=== PATIENT | female | born 2005 | race Caucasian/White ===

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

== ENCOUNTER 2023-11-14 14:47 | Outpatient (CLI) | payer OTHER, SELFPAY ==
[2023-11-14 15:08] LABS: Basophils Absolute Auto 0.04 K/mm3 (0.00-0.10); Basophils Percent Auto 0.6 % (0.0-1.0); Eosinophils Absolute Auto 0.12 K/mm3 (0.02-0.50); Eosinophils Percent Auto 1.7 % (1.0-6.0); Hematocrit 35.3 % (35.0-49.0); Hemoglobin 12.2 g/dL (12.0-15.0); Immature Granulocyte Absolute 0.02 K/mm3 (0.00-0.00); Immature Granulocyte Percent A 0.3 % (0.0-0.0); Lymphocytes Absolute Auto 1.89 K/mm3 (1.10-4.50); Lymphocytes Percent Auto 27.2 % (18.0-42.0); Mean Corpuscular HGB Conc 34.6 g/dL (32-36); Mean Corpuscular Hemoglobin 32.2 pg (27.0-31.0); Mean Corpuscular Volume 93.1 fL (78.0-102.0); Mean Platelet Volume 9.7 fl (9.2-11.8); Monocytes Absolute Auto 0.52 K/mm3 (0.10-0.90); Monocytes Percent Auto 7.5 % (2.0-11.0); Neutrophils Absolute Auto 4.36 K/mm3 (1.70-7.20); Neutrophils Percent Auto 62.7 % (50.0-70.0); Platelet Count Result 245 K/mm3 (150-420); Red Blood Count 3.79 M/mm3 (4.20-5.40); Red Cell Distribution Width 11.6 % (11.6-14.4)
[2023-11-14 16:14] LABS: Alanine Aminotransferase 16 U/L (14-59); Alkaline Phosphatase 57 U/L (46-116); Anion Gap 10 mmol/L (4-12); Aspartate Amino Transferase 19 U/L (15-37); Bilirubin,Total 0.2 mg/dL (0.00-1.00); Blood Urea Nitrogen 11 mg/dL (7-18); Carbon Dioxide 27 mmol/L (21-32); Chloride 99 mmol/L (98-108); Estimated Glomerular Filt Rate > 60; Ferritin 45 ng/mL (8-252); Folic Acid 10.3 ng/mL (8.6->20); Free T4 Free Thyroxine 0.81 ng/dL (0.76-1.46); Glucose 68 mg/dL (70-99); Iron 61 ug/dL (50-170); Osmolality Calculated 279 mOsm/kg (285-295); Percent Iron Saturation 20 % (12-57); Sodium 136 mmol/L (136-145); Vitamin B12 297 pg/mL (193-986)
== END 2023-11-14 14:48 | disposition home or self-care (01) ==
LOC: CHSLAB 14:50
PROVIDERS: PCP Internal Medicine; Visit Provider Internal Medicine
DX: R53.83 Other fatigue (principal); D64.9 Anemia, unspecified
CPT/HCPCS: 36415; 80053; 82607; 82728; 82746; 83540; 83550; 84439; 84443; 84481; 85025

== ENCOUNTER 2024-04-03 12:23 | Outpatient (CLI) | payer OTHER, SELFPAY ==
[2024-04-03 12:37] LABS: Basophils Absolute Auto 0.04 K/mm3 (0.00-0.10); Basophils Percent Auto 0.7 % (0.0-1.0); Eosinophils Absolute Auto 0.13 K/mm3 (0.02-0.50); Eosinophils Percent Auto 2.3 % (1.0-6.0); Hematocrit 41.2 % (35.0-49.0); Hemoglobin 14.1 g/dL (12.0-15.0); Immature Granulocyte Absolute 0.01 K/mm3 (0.00-0.00); Immature Granulocyte Percent A 0.2 % (0.0-0.0); Lymphocytes Absolute Auto 1.86 K/mm3 (1.10-4.50); Lymphocytes Percent Auto 32.7 % (18.0-42.0); Mean Corpuscular HGB Conc 34.2 g/dL (32-36); Mean Corpuscular Volume 93.4 fL (78.0-102.0); Mean Platelet Volume 9.6 fl (9.2-11.8); Monocytes Absolute Auto 0.49 K/mm3 (0.10-0.90); Monocytes Percent Auto 8.6 % (2.0-11.0); Neutrophils Absolute Auto 3.16 K/mm3 (1.70-7.20); Neutrophils Percent Auto 55.5 % (50.0-70.0); Platelet Count Result 261 K/mm3 (150-420); Red Blood Count 4.41 M/mm3 (4.20-5.40); Red Cell Distribution Width 11.9 % (11.6-14.4); White Blood Count 5.7 K/mm3 (4.8-10.8)
[2024-04-03 13:28] LABS: Alanine Aminotransferase 23 U/L (14-59); Albumin Level 4.3 g/dL (3.4-5.0); Alkaline Phosphatase 76 U/L (46-116); Aspartate Amino Transferase 19 U/L (15-37); Bilirubin Direct 0.1 mg/dL (0-0.2); Bilirubin,Total 0.5 mg/dL (0.00-1.00); Cholesterol 223 mg/dL (0-200); HDL Direct 55 mg/dL (40-60); LDL Cholesterol Calculated 142 mg/dL (<130); Total Protein 7.4 g/dL (6.4-8.2); Triglycerides 129 mg/dL (0-150)
== END 2024-04-03 12:24 | disposition home or self-care (01) ==
LOC: CHSLAB 12:26
PROVIDERS: PCP Internal Medicine
DX: L70.0 Acne vulgaris (principal)
CPT/HCPCS: 36415; 80061; 80076; 85025

== ENCOUNTER 2024-08-21 05:43 | Emergency (ER) | payer OTHER, SELFPAY ==
--- NOTE | ~2024-08-21 | CT_ITS ---
Non-contrast CT scan of the Abdomen and Pelvis and lumbar spine Clinical indication: Right flank pain Technique: 2.5 mm axial scans were obtained through the abdomen and pelvis without intravenous or or al contrast. Dedicated noncontrast imaging of the lumbar spine was also performed. Dose reduction chace hnique was used on this scan by utilizing automated exposure control and iterative reconstruction chace hnique. The dose-length product (DLP) was 617.17 mGy-cm. Abdominopelvic Findings: Images through the lung bases reveal no abnormalities. There is a 2 mm right UVJ stone, with minimal fullness of the right renal collecting system. No left renal or left ureteral stone. No left hydronephrosis. The liver, spleen, pancreas, gallbladder, and adrenals appear normal. There is no aortic aneurysm. There is no evidence of bowel obstruction. Normal appendix. Images through the pelvis were performed. There is no evidence of ascites or lymphadenopathy. Urinary bladder unremarkable. IUD in place. No pelvic mass seen. Lumbar spine findings: There is no fracture or subluxation of the lumbar spine. Vertebral bodies main tain normal height and alignment. Intervertebral disc spaces are preserved. No significant disc bulge or herniation seen at any lumbar level. No spinal canal stenosis or neural foraminal narrowing evident. Impression: 2 mm right UVJ stone with minimal fullness of the right renal collecting system. No other significant findings in the abdomen, pelvis, or lumbar spine. Reviewed, dictated and finalized at [facility]. Impression: 2 mm right UVJ stone with minimal fullness of the right renal collecting system . No other significant findings in the abdomen, pelvis, or lumbar spine.
[2024-08-21 05:46] VITALS: BP 116/68; PULSE 87; RESP 18; TEMP 36.2; O2SAT 100
--- OUTSIDE RECORDS SUMMARY | 2024-08-21 05:46 | XMS_ITS | Continuity of Care Document ---
Author Organization [facility] Address [address] [place] [address] Phone Care Team Providers Care Rail Setter Name Role Phone Daily OD, Tano Unavailable Unavailable Procedures Procedure Date Eye Exam, New Patient Refraction Advance Directives Directive Yes / No Effective Date File Name No Information Encounters Encounter Description Practice Location Reason(s) For Visit Diagnoses Date Provider Providers Copied on Encounter [facility], [address] [place], [place], [id number], [place] tel:[phone] [facility] No Information 0-200 8 Daily OD Tano. [address] , [address], [place], [address], [place]. tel:[phone] Family History Family Member Type Diagnosis Age At Onset No Information Payers Payer name Insurance type Covered green party ID Authoriza tion(s) No Information Social History Type Description Quantity Date Captured Comments Sex Female Smoking Status No Information Chief Complaint And Reason For Visit No Information Reason For Referral Reason For Referral No Information History Of Present Illness Encounter Date Complaint History Of Prese nt Illness No Information Functional Status Date Functional Assessmen t No Information Instructions Date Instruction Additional Infor mation No Information Assessments Type Assessment Date No Information Patient Care Teams Name Effective Dates (start - stop) Status Members No Information
--- OUTSIDE RECORDS SUMMARY | 2024-08-21 05:46 | XMS_ITS | Data Portability ---
[facility] Address [address] [place] [address] Care Team Providers Care Bonding Molder Name Role Phone NORBERT DE PAZ Primary Care Provider Assessment Encounter Date Assessment Date Assessment LastModified by Organization Details LastModified Time 11/10/2023 11/10/2023 blood work will be ordered follow-up annually continue to see fruit or nut grower and her leather skinner as they dictate [email or web address] Not available 11/10/2023 21:30:46 02/09/2024 02/09/2024 recheck her blood work she will see me back in 4 months [email or web address] Not available 02/10/2024 15:51:18 Plan of Treatment Reminders Order Date Submit Date Provider Last Modified By Organization Details Last Modified Time Details Appointments None recorded. Lab vitamin B12, serum 2023 [facility] (Lab), [address] [place] [address], [address], 5 14:24:22 CBC w/ auto diff 2023 024 [facility] (Lab), [address] [place], [address], 4 06:03:27 T3, free, serum or plasma 2023 024 [facility] (Lab), [address] [place] [address], [address], 5 14:24:22 TSH + free T4, serum 2023 024 [facility] (Lab), [address] [place], [address], 5 14:24:22 vitamin B12 + folate, serum or blood 2023 024 [facility] (Lab), [address] [place], [address], 4 11:42:44 iron + TIBC + ferritin, serum 2023 024 [facility] (Lab), [address] [place], [address], 4 12:11:00 CMP, serum or plasma 2023 024 [facility] (Lab), [address] [place], [address], 4 11:42:44 CBC w/ auto diff 2023 024 [facility] (Lab), [address] [place], [address], 4 16:41:39 TSH + free T4, serum 2023 024 [facility] (Lab), [address] [place], [address], 4 11:42:44 T3, free, serum or plasma 2023 024 [facility] (Lab), [address] [place], [address], 4 11:42:44 Referral None recorded. Procedures None recorded. Surgeries None recorded. Imaging None recorded. Medication Orders cyanocobal briceno (vit B-12) 1,000 mcg/mL injection solution 2023 024 [id number], [address] [place], [address], 4 17:42:57 Patient TargetsNo targets recorded. Patient Instructions Encounter Date Encounter Id Patient Instructions Last Modified By Organization Details Last Modified Time 02/09/2024 [id number] A healthy lifestyle: care instructions [email or web address] Not available 02/09/2024 13:12:30 Reason for Referral None Reported. Results Created Date Observation Date Name Description Value Unit Range Abnormal Flag Note LastModifiedBy Organization Detail LastModifiedTime Result Notes None recorded. Problems Name Problem SNOMED Code Status Onset Date Resolution Date Notes Provider Name and Address Organization Details Recorded Time Fatigue 67787313 Active 024 LEYDA Friedman, [facility] 4 17:08:14 Anemia 076956106 Active 024 LEYDA Friedman, [facility] 4 17:08:15 Vitamin B deficiency 69521137 Active 024 LEYDA Friedman, [place] [facility] 4 16:11:42 Problem Notes None recorded. Procedures Surgical History Date Name Laterality Status Provider Name and Address Organization Details Recorded Time 7 Tonsillectomy completed Mikey Bell MA [facility] 11/10/2023 16:16:54 Imaging Results None recorded. Procedure Notes None recorded. Medical Equipment None Reported. Allergies Allergen ID Allergen Name Allergen Category Reaction Reaction Severity Criticality Documentation Date Start Date Code Code System Note Provider Name and Address Organization Details Recorded Time 124578 ethinyl estradiol / levonorge strel medicatio n Not available Not available Not available 11/10/2023 51479 8 RxNorm Not Available Not Available Not Available Medications Name Sig Start Date Stop Date Status Note LastModified by Organization Details LastModified Time doxycycline hyclate 100 mg capsule TAKE ONE PILL TWICE DAILY WITH FOOD UNTIL GONE. USE 5-7 DAYS AT A TIME FOR FLARES. 02/08 completed Not Available Not Available Not Available tretinoin 0.025 % topical cream APPLY THIN LAYER TO AFFECTED AREAS BEFORE BEDTIME AFTER WASHING. LAYER WITH MOISTURIZ ER NEEDED. active Not Available Not Available No t Available spironolact one 100 mg tablet TAKE ONE TABLET ONCE DAILY WITH A FULL GLASS OF WATER. active Not Available Not Available No t Available cyanocobala min (vit B-12) 1,000 mcg/mL injection solution INJECT 1ML EVERY WEEK FOR 4 WEEKS THEN INJECT 1ML MONTHLY active Not Available Not Available No t Available spironolact one 50 mg tablet TAKE 1 TABLET BY MOUTH EVERY DAY WITH FULL GLASS OF WATER 02/08 completed Not Available Not Available Not Available syringe with needle 1 mL 25 gauge x 1 active Not Available Not Available N ot Available BD Integra Syringe 3 mL 25 gauge x 1 USE DIRECTED FOR B12 INJECTION active Not Available Not Available No t Available Vitals Date Recorded Body height Body mass index (BMI) Percentile per age and sex Body mass index (BMI) Body weight Heart rate Body temperature Oxygen saturation Oxygen saturation in Arterial blood by Pulse oximetry Systolic blood pressure Diastolic blood pressure Provider Name and Address Organization Details Last Updated DateTime 4 154.94 cm 95 % 32.3 kg/m2 83216.5 8 g 80 /min 98 [degF] 99 % 99 % 108 mm[Hg] 60 mm[Hg] Mikey Bell MA [facility] 4 16:20:10 Date Recorded Body height Body mass index (BMI) Body mass index (BMI) Percentile per age and sex Body weight Heart rate Oxygen saturation Oxygen saturation in Arterial blood by Pulse oximetry Systolic blood pressure Diastolic blood pressure Provider Name and Address Organization Details Last Updated DateTime 4 154.94 cm 31.6 kg/m2 94 % 24768.9 3 g 95 /min 100 % 100 % 100 mm[Hg] 64 mm[Hg] Mahi Rodriguez MA [facility] 4 11:39:34 Social History Question Answer Notes LastModified by Organizat ion Details LastModified Time Tobacco Smoking Status Never Smoker Mikey Bell MA [facility] 11/10/2023 16:16:37 Do You Have An Advance Directive? No Information n ot available 02/09/2024 What Is Your Level Of Alcohol Consumption? None Information not available 11/10/2023 Are You Blind Or Do You Have Difficulty Seeing? No Information n ot available 02/09/2024 In The 14 Days Before Symptom Onset, Have You Had Close Contact With A Laboratory-confirm ed COVID-19 While That Case Was Ill? No Information n ot available 02/09/2024 In The 14 Days Before Symptom Onset, Have You Had Close Contact With A Person Who Is Under Investigation For COVID-19 While That Person Was Ill? No Information not available 02/09/2024 Have You Been To An Area Known To Be High Risk For COVID-19? No Information not available 02/09/2024 Are You Currently Employed? Yes Information not available 02/09/2024 Are You Deaf Or Do You Have Serious Difficulty Hearing? No Information not available 02/09/2024 What Type Of Diet Are You Following? REGULAR Information n ot available 02/09/2024 Are There Any Guns Present In Your Home? No Information not available 02/09/2024 What Was The Date Of Your Most Recent Tobacco Screening? 02/09/2024 Information not available 02/09/2024 What Is Your Relationship Status? Single Information not available 02/09/2024 Do You Use Your Seat Belt Or Car Seat Routinely? Yes Information not available 02/09/2024 Do You Have Smoke And Carbon Monoxide Detectors In Your Home? Yes Information not available 02/09/2024 Do You Use Any Illicit Or Recreational Drugs? No Information not available 11/10/2023 Do You Use Sunscreen Routinely? Yes Information not available 02/09/2024 Has Tobacco Cessation Counseling Been Provided? No Information not available 11/10/2023 Do You Or Have You Ever Used Any Other Forms Of Tobacco Or Nicotine? No Information not available 11/10/2023 Sex: Female Functional Status Question Answer Note LastModified by Organization D etails LastModified Time Are you able to care for yourself? Yes Information n ot available 02/09/2024 Mental Status None recorded. Family History Relationship Description Onset Age of this Age Resolved Age Notes LastModified by Organization Details LastModified Time Mother Hypertensive disorder [email or web address] Not available 16:16:27 Medical History Condition Response Coronary Artery Disease N Atrial Fibrillation N High Blood Pressure N Thyroid Problems N Kidney or Bladder Problems N Depression N COPD N Blood Clots N GI Problems N Skin Problems N Anemia Y Heart Attack ([place]) N Diabetes N Anxiety Disorder N Muscle, Joint, or Bone Problems N Seizures/Epilepsy N Acid Reflux (GERD) N Cancer N Stroke N Allergies N Asthma N High Cholesterol N Hepatitis N Liver Disease N Headaches N Osteoporosis N Heart Failure N Gynecological HistoryNo gynecological history recorded. Obstetrics History GPAL:G 0 P 0 0 0 0 Past Encounters Encounter ID Performer Location Encounter Start Date Encounter Closed Date Diagnosis/Indication Diagnosis SNOMED-CT Code Diagnosis ICD10 Code Diagnosis Note [id number] Norbert De Paz MD REPLACED BY [facility] [place] [address] [place] [address] 11/10/2023 14:20:07 11/10/2023 17:11:01 Fatigue 28304683 R53.83 Anemia 462313334 D64.9 [id number] Elle Dave MA REPLACED BY [facility] [employer] [place] [address] [place] [address] 12/01/2023 16:13:10 12/01/2023 16:54:44 Vitamin B deficiency 12206786 E53.9 [id number] Norbert De Paz MD REPLACED BY [facility] [employer] [place] [address] [place] [address] 02/09/2024 11:15:42 02/09/2024 12:18:53 Obesity 302387406 E66.8 Vitamin B deficiency 479 [address]303 E53.9 Fatigue 77621156 R53.83 Health Concerns Section Related Observation LastModified by Organization Detai ls LastModified Time None Recorded Concern Status LastModified by Organization Details LastModified Time None Recorded Advance Directives Directive N: Payers Encounter Date Sequence Insurance Name Policy Number Policy Thomas Covered Member ID Thomas Member ID Guarantor Name 11/10/2023 1 [facility] (MEDICARE REPLACEMENT/A DVANTAGE - HMO) [id number] Trev Aviles [id number] Coco Aviles 12/01/2023 1 [facility] (MEDICARE REPLACEMENT/A DVANTAGE - HMO) [id number] Trev Aviles [id number] Coco Aviles 02/09/2024 1 [facility] [id number] Trev Aviles [id number] Coco Aviles Notes Date Note Type Note Provider Name and Address Organization Details Recorded Time 11/10/2023 text/html 18-year-old follow-up medical problems she is being treated for acne she has had some fatigue craves ice would like to have some blood work believes since he has had anemia in the past medicines are doxycycline spironolactone tretinoin cream. 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 sees fruit or nut grower yearly Norbert De Paz MD Attn: Accounting[address] [facility], [place], [address], [facility] 11/10/2023 21:31:05 02/09/2024 text/html she felt better when she did the weekly B12 shots still a little tired now Norbert De Paz MD Attn: Accounting[address] [facility], [place], [address], [facility] - REPLACED BY [facility] 02/10/2024 15:51:42 OBGyn Episode No OBEpisode recorded.
--- OUTSIDE RECORDS SUMMARY | 2024-08-21 05:46 | XMS_ITS | Data Portability ---
Author Organization [facility], Main Office Address [address] [place] [address] Assessment Encounter Date Assessment Date Assessment LastModified by Organization Details LastModified Time 03/15/2023 03/15/2023 Dermatology [id number] Not available 22:32:15 Plan of Treatment Reminders Order Date Submit Date Provider Last Modified By Organization Details Last Modified Time Details Appointments None recorded. Lab None recorded. Referral dermatologi st referral 2022 023 [facility], [facility] [place], [address], 4 11:01:03 Procedures None recorded. Surgeries None recorded. Imaging None recorded. Medication Orders None recorded. Patient TargetsNo targets recorded. Patient InstructionsNo instructions recorded. Reason for Referral Glove Examiner Referral for C ystic acne Referring Physician: Norbert De Paz, Internal Medicine, Encounter Date: 03/15/2023 Problems Name Problem SNOMED Code Status Onset Date Resolution Date Notes Provider Name and Address Organization Details Recorded Time Closed fracture of distal end of radius 33919957 Active Not Available [facility] 17:42:18 Fracture of forearm 97566135 Active Not Available [facility] 17:42:18 Cystic acne 27721388 Active 023 LOYAD Friedman, [facility] 16:49:14 Problem Notes None recorded. Procedures Surgical History Date Name Laterality Status Provider Name and Address Organization Details Recorded Time tonsillectomy completed Not Available [facility] 07/14/2022 17:41:42 Imaging Results None recorded. Procedure Notes None recorded. Medical Equipment None Reported. Allergies No known drug allergies Medications Name Sig Start Date Stop Date Status Note LastModified by Organization Details LastModified Time amoxicillin 500 mg capsule 03/28 completed Not Available Not Available Not Available albuterol sulfate 2.5 mg/3 mL (0.083 %) solution for nebulizatio n active Not Available Not Available Not Available azithromyci n 250 mg tablet 08/20 completed Not Available Not Available Not Available hydrocodone 5 mg-acetamin ophen 325 mg tablet TAKE 1 TABLET BY MOUTH EVERY 6 HOURS NEEDED FOR PAIN 08/21 completed Not Available Not Available Not Available amoxicillin 875 mg tablet 12/27 completed Not Available Not Available Not Available amoxicillin 400 mg/5 mL oral suspension 08/20 completed Not Available Not Available Not Available methylpredn isolone 4 mg tablets in a dose pack 12/27 completed Not Available Not Available Not Available ondansetron 4 mg disintegrat ing tablet 12/27 completed Not Available Not Available Not Available amoxicillin 875 mg-potassiu m clavulanate 125 mg tablet 12/27 completed Not Available Not Available Not Available Ventolin HFA 90 mcg/actuati on aerosol inhaler INHALE 2 - 3 PUFFS BY MOUTH EVERY 4 - 6 HOURS active Not Available Not Available No t Available hydrocodone 7.5 mg-acetamin ophen 325 mg/15 mL oral solution 08/20 completed Not Available Not Available Not Available biotin 08/20 completed Not Available Not Available Not Available Larissia 0.1 mg-20 mcg tablet TAKE 1 TABLET BY MOUTH EVERY DAY 03/15 completed Not Available Not Available Not Available EluRyng 0.12 mg-0.015 mg/24 hr vaginal ring INSERT 1 RING VAGINALLY 03/15 completed Not Available Not Available Not Available Vitals Date Recorded Body mass index (BMI) Body height Body weight Systolic blood pressure Diastolic blood pressure Provider Name and Address Organization Details Last Updated DateTime 08/21/2020 28.2 kg/m2 157.48 cm 74692.22 g 100 mm[Hg] 60 mm[Hg] Not Available [facility] 3 17:41:56 Date Recorded Body weight Body mass index (BMI) Body mass index (BMI) Percentile per age and sex Body height Body temperature Heart rate Oxygen saturation Oxygen saturation in Arterial blood by Pulse oximetry Systolic blood pressure Diastolic blood pressure Provider Name and Address Organization Details Last Updated DateTime 3 35371.7 g 32.1 kg/m2 95 % 154.94 cm 96.8 [degF] 116 /min 99 % 99 % 124 mm[Hg] 70 mm[Hg] Rosa Aguirre MA [place] [facility] [place] [employer] [facility] 3 16:10:46 Social History Question Answer Notes LastModified by [employer] Details LastModified Time Tobacco Smoking Status Never Smoker Not Available [facility] 07/14/2022 17:41:37 What Is Your Level Of Alcohol Consumption? None [id number] Information not available 07/14/2022 What Is Your Level Of Caffeine Consumption? Moderate [id number] Information not available 07/14/2022 In The 14 Days Before Symptom Onset, Have You Had Close Contact With A Laboratory-confir med COVID-19 While That Case Was Ill? No [id number] Information not available 07/14/2022 In The 14 Days Before Symptom Onset, Have You Had Close Contact With A Person Who Is Under Investigation For COVID-19 While That Person Was Ill? No [id number] Information not available 07/14/2022 Which Illicit Or Recreational Drugs Have You Used? No [id number] Information not available 07/14/2022 Do You Or Have You Ever Used E-cigarettes Or Vape? Never Used Electronic Cigarettes [id number] Information not available 07/14/2022 What Was The Date Of Your Most Recent Tobacco Screening? 03/15/2023 Information not available 03/15/2023 Do You Use Any Illicit Or Recreational Drugs? No Information not available 03/15/2023 Sex: Unknown Functional Status Question Answer Note LastModified by [employer] Details LastModified Time What is your exercise level? Occasional [id number] Information not available 07/14/2022 Mental Status None recorded. Family History Relationship Description Onset Age of this Age Resolved Age Notes LastModified by Organization Details LastModified Time Mother Hypertensive disorder [id number] Not available 07/14/2022 17:41:43 Unspecified Relation Hyperlipidem ia patern al side Not available 03/15/2023 16:07:38 Medical History Condition Response SKIN PROBLEMS Y OTHER # 1 Y Gynecological History Statement/Question Response Date of Last Pap Smear Current Control Method BCPs Age at Menarche 10 Date of LMP 07/20/2020 Breast Problems no Obstetrics History GPAL:G 0 P 0 0 0 0 Past Encounters Encounter ID Performer Location Encounter Start Date Encounter Closed Date Diagnosis/Indication Diagnosis SNOMED-CT Code Diagnosis ICD10 Code Diagnosis Note [id number] _ATHENA_M IGRATION_ DEFAULT_1 _1 , 08/21/2020 00:00:00 08/21/2020 09:25:01 [id number] Norbert De Paz MD [facility] Internal Med Nae joshi [id number] [facility] , [facility] [place] [address] 03/15/2023 15:25:16 03/15/2023 16:48:57 Cystic acne 14586456 L70.0 Health Concerns Section Related Observation LastModified by Organization Detai ls LastModified Time None Recorded Concern Status LastModified by Organization Details LastModified Time None Recorded Advance Directives Directive None Recorded Payers Encounter Date Sequence Insurance Name Policy Number Policy Thomas Covered Member ID Thomas Member ID Guarantor Name 03/15/2023 1 [facility] [id number] Trev Aviles [id number] Coco Aviles Notes Date Note Type Note Provider Name and Address Organization Details Recorded Time 03/15/2023 text/html 17-year-old acne scarring allergies none surgery tonsils family history hypertension socially single denies smoking drinking drugs does go to school 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
--- OUTSIDE RECORDS SUMMARY | 2024-08-21 05:47 | XMS_ITS | Continuity of Care Document ---
Author Organization [facility] Address [address] [place] [address] Phone Care Team Providers Care Technical Maintenance Specialist Name Role Phone Monique Xavier DPT Unavailable Unavailable Procedures Procedure Date Therapeutic Activities Neuromuscular Re-Ed Therapeutic Exercise Therapeutic Activities Neuromuscular Re-Ed Therapeutic Activities Neuromuscular Re-Ed Therapeutic Activities Neuromuscular Re-Ed Therapeutic Exercise Hot or Cold Pack Therapeutic Activities Neuromuscular Re-Ed Therapeutic Exercise Therapeutic Activities Neuromuscular Re-Ed Therapeutic Exercise PT Evaluation Moderate Complexity Therapeutic Activities Hot or Cold Pack Advance Directives Directive Yes / No Effective Date File Name No Information Encounters Encounter Description Practice Location Reason(s) For Visit Diagnoses Date Provider Providers Copied on Encounter [facility], [place], [place], [address], tel:[phone] [facility] No Information Morenita Amaya. . Referring Provider: Access Direct. [facility], [place], [place], [address], tel:[phone] [facility] No Information Duross Monique. . Referring Provider: Access Direct. [facility], [place], [place], [address], tel:[phone] [facility] No Information Duross Monique. . Referring Provider: Access Direct. [facility], [place], [place], [address], tel:[phone] [facility] No Information Duross Monique. . Referring Provider: Access Direct. [facility], [place], [place], [address], tel:[phone] [facility] No Information Duross Monique. . Referring Provider: Access Direct. [facility], [place], [place], [address], tel:[phone] [facility] No Information Duross Monique. . Referring Provider: Access Direct. [facility], [place], [place], [address], tel:[phone] [facility] No Information Duross Monique. . Referring Provider: Access Direct. Family History Family Member Type Diagnosis Age At Onset No Information Payers Payer name Insurance type Covered alliance party ID Toshia fraustocarla(s) Lien-LOP LI [id number] Social History Type Description Quantity Date Captured Comments Sex Female Smoking Status No Information Chief Complaint And Reason For Visit No Information Reason For Referral Reason For Referral No Information Plan Of Treatment Date Type Action Status Appointment Jared Aviles BOOKED Appointment Jared Aviles BOOKED History Of Present Illness Encounter Date Complaint History Of Prese nt Illness No Information Functional Status Date Functional Assessmen t No Information Instructions Date Instruction Additional Infor mation No Information Assessments Type Assessment Date No Information Patient Care Teams Name Effective Dates (start - stop) Status Members No Information
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
--- OUTSIDE RECORDS SUMMARY | 2024-08-21 06:07 | XMS_ITS | Continuity of Care Document ---
Author Organization [facility] Address [address] [place] [address] Phone Care Team Providers Care Linux Kernel Developer Name Role Phone Daily OD, Tano Unavailable Unavailable Procedures Procedure Date Eye Exam, New Patient Refraction Advance Directives Directive Yes / No Effective Date File Name No Information Encounters Encounter Description Practice Location Reason(s) For Visit Diagnoses Date Provider Providers Copied on Encounter [facility], [address], [place], [place], [address], [place] tel:[phone] [place] No Information 0-200 8 Daily OD Tano. [address] , [address], [place], [address], [place]. tel:[phone] Family History Family Member Type Diagnosis Age At Onset No Information Payers Payer name Insurance type Covered libertarian ID Authoriza tion(s) No Information Social History [...]
--- OUTSIDE RECORDS SUMMARY | 2024-08-21 06:07 | XMS_ITS | Continuity of Care Document ---
Author Organization [facility] Address [address] [place] [address] Phone Care Team Providers Care Curriculum And Instruction Director Name Role Phone Monique Xavier DPT Unavailable [...] Diagnoses Date Provider Providers Copied on Encounter [facility], [place], [place], [address], tel:[phone] [facility] No Information Morenita Amaya. . Referring Provider: Access Direct. [facility], [place], [place], [address], tel:[phone] [facility] No Information Duross Monique. . Referring Provider: Access Direct. [facility], [place], [place], [address], tel:[phone] [facility] No Information Duross Monique. . Referring Provider: Access Direct. [facility], [place], [place], [address], tel:[phone] [facility] No Information Duross Monique. . Referring Provider: Access Direct. [facility], [place], [place], [address], tel:[phone] [facility] No Information Duross Monique. . Referring Provider: Access Direct. [facility], [place], [place], [address], tel:[phone] [facility] No Information Duross Monique. . Referring Provider: Access Direct. [facility], [place], [place], [address], tel:[phone] [facility] No Information Duross Monique. . Referring Provider: Access Direct. Family History Family Member Type Diagnosis Age At Onset No Information Payers Payer name Insurance type Covered green party ID Toshia fraustocarla(s) Lien-LOP LI [id number] [...]
[2024-08-21 06:13] LABS: Add Urine Microscopic? YES; Appearance Urine Sl Cloudy (Clear); Bilirubin Urine Negative (Negative); Blood Urine 3+ (Negative); Color Urine Yellow (Yellow); Glucose Urine UA Negative (Negative); Ketones Urine Negative (Negative); Leukocyte Esterase Ur Trace LEU/UL (Negative); Nitrate Urine Negative (Negative); Protein Urine 1+ (Negative); Specific Grav Ur >= 1.030 (1.010-1.020)
[2024-08-21] MEDS: ONDANSETRON INJ 4 MG/2 ML VIAL IV PUSH (06:26)
[2024-08-21] MEDS: HYDROmorphone HCL INJ (*CRX) 2 MG/ML VIAL 0.5 MG IV PUSH (06:26)
[2024-08-21 06:27] LABS: Basophils Absolute Auto 0.02 K/mm3 (0.00-0.10); Basophils Percent Auto 0.4 % (0.0-1.0); Eosinophils Absolute Auto 0.18 K/mm3 (0.02-0.50); Eosinophils Percent Auto 3.3 % (1.0-6.0); Hematocrit 38.4 % (35.0-49.0); Hemoglobin 12.7 g/dL (12.0-15.0); Immature Granulocyte Absolute 0.01 K/mm3 (0.00-0.00); Immature Granulocyte Percent A 0.2 % (0.0-0.0); Lymphocytes Absolute Auto 1.92 K/mm3 (1.10-4.50); Lymphocytes Percent Auto 34.9 % (18.0-42.0); Mean Corpuscular HGB Conc 33.1 g/dL (32-36); Mean Corpuscular Hemoglobin 31.3 pg (27.0-31.0); Mean Corpuscular Volume 94.6 fL (78.0-102.0); Mean Platelet Volume 9.5 fl (9.2-11.8); Monocytes Absolute Auto 0.45 K/mm3 (0.10-0.90); Monocytes Percent Auto 8.2 % (2.0-11.0); Neutrophils Absolute Auto 2.92 K/mm3 (1.70-7.20); Platelet Count Result 223 K/mm3 (150-420); Red Blood Count 4.06 M/mm3 (4.20-5.40); Red Cell Distribution Width 11.8 % (11.6-14.4); White Blood Count 5.5 K/mm3 (4.8-10.8)
[2024-08-21] MEDS: SODIUM CHLORIDE 0.9% IV 1,000 ML 999 ML IV CONT (06:27)
[2024-08-21 06:29] LABS: Bacteria Urine 1+ /hpf; Mucus Urine Few /lpf; Pregnancy On Board Control Positive; RBC Urine 21-50 /hpf (0-2); Squamous Epithelial Cell Urine Few /hpf (Few); Urine Pregnancy Test Negative; WBC Urine 0-3 /hpf (0-3)
[2024-08-21 06:44] LABS: Alanine Aminotransferase 20 U/L (14-59); Albumin Level 4.1 g/dL (3.4-5.0); Alkaline Phosphatase 72 U/L (46-116); Anion Gap 8 mmol/L (4-12); Aspartate Amino Transferase 14 U/L (15-37); Bilirubin,Total 0.4 mg/dL (0.00-1.00); Blood Urea Nitrogen 12 mg/dL (7-18); Calcium 8.9 mg/dL (8.5-10.1); Carbon Dioxide 25 mmol/L (21-32); Chloride 106 mmol/L (98-108); Estimated CRCL calculation 74 ml/min; Estimated Glomerular Filt Rate > 60; Glucose 110 mg/dL (70-99); Lipase 22 U/L (16-77); Osmolality Calculated 288 mOsm/kg (285-295); Potassium 3.6 mmol/L (3.5-5.1); Sodium 139 mmol/L (136-145); Total Protein 7.3 g/dL (6.4-8.2)
[2024-08-21 06:51] VITALS: BP 106/68; PULSE 80; RESP 18; O2SAT 99
[2024-08-21] MEDS: TAMSULOSIN HCL 0.4 MG CAPSULE PO (07:11)
[2024-08-21 07:16] VITALS: BP 122/73; PULSE 81; RESP 18; TEMP 36.6; O2SAT 98
== END 2024-08-21 07:16 | disposition home or self-care (01) ==
PROVIDERS: Emergency Provider Emergency Medicine; PCP Internal Medicine
DX: N20.0 Calculus of kidney (principal)
CPT/HCPCS: 36415; 72131; 74176; 80053; 81001; 81025; 83690; 85025; 96361; 96374; 96375; 99284; A9270; J1171; J2405; J7030